=== PATIENT | male | born 2000 | race Caucasian/White ===

== ENCOUNTER 2023-06-25 03:04 | Emergency (ER) | payer OTHER ==
[~2023-06-25] VITALS: Ht 172.7 cm; Wt 70.3 kg
[2023-06-25 03:06] VITALS: BP 146/77; PULSE 105; RESP 18; TEMP 98.5; O2SAT 97
[2023-06-25 03:41] VITALS: BP 146/77; PULSE 105; RESP 18; TEMP 98.5; O2SAT 97
== END 2023-06-25 03:42 ==
LOC: MED 03:04
DX: Z02.89 Encounter for other administrative examinations (principal); V89.2XXA Person injured in unspecified motor-vehicle accident, traffic, initial encounter; Y93.89 Activity, other specified; Y92.410 Unspecified street and highway as the place of occurrence of the external cause; Y99.8 Other external cause status
CPT/HCPCS: 99283